=== PATIENT | female | born 1965 | race Two or more races ===

== ENCOUNTER → 2020-09-01 13:07 | Outpatient (CLI) | payer OTHER | END | disposition home or self-care (01) | LOC: PPH VACUNA 13:07 | DX: Z23 Encounter for immunization (principal) ==

== ENCOUNTER 2022-08-14 09:56 | Emergency (ER) | payer OTHER ==
[~2022-08-14] VITALS: Ht 165.1 cm; Wt 77.1 kg
[2022-08-14] MEDS ORDERED: PROAIR RESPICL90 MCG (10:06)
[2022-08-14] MEDS ORDERED: MONTELUKAST SODI4 M1 (10:06)
[2022-08-14] MEDS ORDERED: RAYOS2 MG (10:06)
[2022-08-14] MEDS ORDERED: TUSSIN400 MG (10:07)
[2022-08-14] MEDS ORDERED: SYNTHROID50 MCG PO (10:07)
== END 2022-08-14 14:20 | disposition home or self-care (01) ==
LOC: ER 09:56
DX: R05.9 Cough, unspecified (principal); E03.9 Hypothyroidism, unspecified; Z88.6 Allergy status to analgesic agent

== ENCOUNTER 2024-02-22 17:13 | Emergency (ER) | payer OTHER ==
[~2024-02-22] VITALS: Ht 165.1 cm; Wt 77.1 kg
[~2024-02-22 17:13] MED LIST: MONTELUKAST SODI4 M1; PROAIR RESPICL90 MCG; RAYOS2 MG; SYNTHROID50 MCG PO; TUSSIN400 MG
[2024-02-22 17:38] VITALS: BP 127/78; O2SAT 98
[2024-02-22] MEDS ORDERED: DEXAMETHASONE SODIUM PHOSPHATE 4 MG/ML VIAL IM STA (19:00)
[2024-02-22 19:45] LABS: HEMATOCRIT 40.5 % (36.0-45.00); HEMOGLOBIN 13.6 g/dL (12.0-15.00); MEAN CELL VOLUME 94.5 fL (80.00-100.00); MEAN CORPUSCULAR HEMOGLOBIN 31.7 pg (27.00-32.0); MEAN CORPUSCULAR HGB CONC 33.5 g/dl (32.0-36.0); PLATELET COUNT 296 K/uL (150-450); RED BLOOD COUNT 4.29 M/uL (4.00-6.00)
[2024-02-22 20:01] LABS: INR 0.94; PROTHROMBIN TIME 10.3 SECONDS (9.0-11.5)
[2024-02-22 20:09] LABS: BILIRUBIN TOTAL 0.24 mg/dL (0.3-1.2); CALCIUM 9.3 mg/dL (8.5-10.1); CREATININE SERUM 1.03 mg/dL (0.55-1.02); GFR 55.43; GLOBULINA 4.2 G/DL (2.4-3.5); POTASSIUM 3.87 mEq/L (3.5-5.1); TOTAL PROTEIN 8.2 gm/dL (6.4-8.2)
== END 2024-02-22 22:38 | disposition home or self-care (01) ==
LOC: ER 17:15
DX: G44.009 Cluster headache syndrome, unspecified, not intractable (principal); E03.9 Hypothyroidism, unspecified; Z88.6 Allergy status to analgesic agent